=== PATIENT | female | born 1965 | race Caucasian/White ===

== ENCOUNTER 2016-08-31 15:00 | Outpatient (RCR) | payer BC | END 2016-10-11 15:36 | disposition home or self-care (01) | LOC: PT 15:00 | DX: S56.511D Strain of other extensor muscle, fascia and tendon at forearm level, right arm, subsequent encounter (principal) ==

== ENCOUNTER → 2019-03-03 | Outpatient (CLI) | payer BC | LOC: MAMMO 13:45 | DX: Z12.31 Encounter for screening mammogram for malignant neoplasm of breast (principal) ==

== ENCOUNTER 2021-04-26 08:54 | Outpatient (RCR) | payer BC | END 2021-05-09 | disposition still patient (30) | LOC: PT | DX: M25.562 Pain in left knee (principal); Z98.890 Other specified postprocedural states ==

== ENCOUNTER 2021-05-10 13:02 | Outpatient (RCR) | payer BC | END 2021-05-10 17:00 | LOC: PT 13:02 | DX: M25.562 Pain in left knee (principal); Z98.890 Other specified postprocedural states ==

== ENCOUNTER 2021-06-20 13:25 | Outpatient (RCR) | payer BC | END 2021-07-09 | disposition home or self-care (01) | LOC: PT | DX: M25.562 Pain in left knee (principal) ==

== ENCOUNTER 2021-07-14 08:30 | Outpatient (RCR) | payer BC | END 2021-08-09 | disposition home or self-care (01) | LOC: PT | DX: M25.562 Pain in left knee (principal) ==

== ENCOUNTER → 2021-09-26 | Outpatient (CLI) | payer BC | LOC: MAMMO 15:28 | DX: Z12.31 Encounter for screening mammogram for malignant neoplasm of breast (principal) ==

== ENCOUNTER → 2022-04-25 | Outpatient (CLI) | payer BC | LOC: RAD 14:47 | DX: Z01.818 Encounter for other preprocedural examination (principal) ==

== ENCOUNTER 2022-05-25 08:00 | Outpatient (RCR) | payer BC | END 2022-06-09 | disposition home or self-care (01) | LOC: PT | DX: M25.561 Pain in right knee (principal) ==

== ENCOUNTER → 2023-01-08 | Outpatient (CLI) | payer BC | LOC: RAD 16:01 | DX: Z01.818 Encounter for other preprocedural examination (principal); M25.562 Pain in left knee; G89.29 Other chronic pain ==

== ENCOUNTER 2023-02-09 08:00 | Outpatient (RCR) | payer BC | END 2023-03-11 | disposition home or self-care (01) | LOC: PT | DX: M25.562 Pain in left knee (principal); Z96.652 Presence of left artificial knee joint ==

== ENCOUNTER → 2023-10-22 | Day surgery (SDC) | payer BC ==
[~2023-10-22] MED LIST: Lidocaine PF 2% (20 MG/ML) 5 ML VIAL ONE
== END | disposition home or self-care (01) ==
LOC: MSO 10:13
DX: Z12.11 Encounter for screening for malignant neoplasm of colon (principal); Z80.0 Family history of malignant neoplasm of digestive organs; K63.5 Polyp of colon
CPT/HCPCS: 00811; J2704; J7120

== ENCOUNTER → 2023-12-13 | Outpatient (CLI) | payer BC | LOC: MAMMO 07:54 | DX: Z12.31 Encounter for screening mammogram for malignant neoplasm of breast (principal) ==